=== PATIENT | female | born 1960 | race African-American/Black ===

== ENCOUNTER 2017-02-13 01:05 | Inpatient (IN) | payer MEDICARE, OTHER ==
[2017-02-13] VITALS (13 sets, daily range): BP systolic 126–177; BP diastolic 68–92; PULSE 59–79; RESP 16–18; TEMP 97.9–98.5; O2SAT 96–99
[~2017-02-13] VITALS: Ht 167.6 cm; Wt 100.0 kg
[2017-02-13] MEDS ORDERED: SODIUM CHLORIDE 0.9% FLUSH 5 ML FLUSH IV FLUSH PRN (01:15)
[2017-02-13 01:34] LABS: AUTOMATED NEUTROPHIL # 4.7 TH/MM3 (1.8-7.7); BASOPHIL % 0.5 % (0.0-2.0); EOSINOPHIL # 0.1 TH/MM3 (0-0.4); EOSINOPHIL % 1.5 % (0.0-4.0); HEMATOCRIT 32.4 % (35.0-46.0); HEMO FLAGS DIFF FINAL; LYMPHOCYTE # 1.7 TH/MM3 (1.0-4.8); MEAN CELL VOLUME 85.7 FL (80.0-100.0); MEAN CORPUSCULAR HEMOGLOBIN 29.2 PG (27.0-34.0); MONO % 6.6 % (0.0-8.0); NEUT % 67.4 % (16.0-70.0); PLATELET COUNT 194 TH/MM3 (150-450); RED BLOOD COUNT 3.79 MIL/MM3 (4.00-5.30); RED CELL DISTRIBUTION WIDTH 15.4 % (11.6-17.2)
[2017-02-13 01:35] LABS: BACTERIA, URINE OCC /hpf; BLOOD, URINE NEG (NEG); COMMENT (UR) CATH-CULTURE IND; CULTURE IF INDICATED CATH CULTURE IND; GLUCOSE,URINE NEG (NEG); KETONE, URINE TRACE mg/dL (NEG); NITRITE,URINE NEG (NEG); SQUAMOUS EPITHELIAL CELL URINE <1 /hpf (0-5); URINE COLOR YELLOW (YELLW/STRAW)
[2017-02-13] MEDS ORDERED: FERR325T8 PO (01:37)
[2017-02-13] MEDS ORDERED: FURO20TA PO (01:37)
[2017-02-13] MEDS ORDERED: HEMOCAP PO (01:37)
[2017-02-13] MEDS ORDERED: METF500T PO (01:37)
[2017-02-13] MEDS ORDERED: ATOR10TA15 PO (01:37)
[2017-02-13] MEDS ORDERED: NITR1SUB3 SL (01:37)
[2017-02-13] MEDS ORDERED: CAPT25TA2 PO (01:37)
[2017-02-13] MEDS ORDERED: CARV3.12 PO (01:37)
[2017-02-13] MEDS ORDERED: POTA-255 PO (01:37)
[2017-02-13] MEDS ORDERED: NEUR100C PO (01:37)
[2017-02-13] MEDS ORDERED: LEXA10TA PO (01:37)
[2017-02-13] MEDS ORDERED: ASPI81CH37 CHEW (01:37)
--- NOTE | 2017-02-13 01:45 | RADRPT ---
EXAM DATE/TIME: 02/13/2017 01:16 [facility] COMPARISON: No previous studies available for comparison. INDICATIONS : Syncopal episode. MEDICAL HISTORY : Stroke. SURGICAL HISTORY : None. ENCOUNTER: Initial ACUITY: 1 day PAIN SCORE: Non-responsive. LOCATION: Bilateral chest FINDINGS: Cardiomegaly. There is airspace disease and/or atelectasis suspected at the bases. Degenerative hernandez es of the spine. CONCLUSION: Basilar atelectasis versus airspace disease. Issa Richardson MD on February 13, 2017 at 1:43 Board Certified Radiologist. This report was verified electronically.
[2017-02-13 01:48] LABS: APTT (PATIENT) 26.1 SEC (24.3-30.1); PROTHROMBIN TIME - PATIENT 10.5 SEC (9.8-11.6)
[2017-02-13 01:58] LABS: ALT (GPT) 22 U/L (10-53); ANION GAP 7 MEQ/L (5-15); AST (GOT) 13 U/L (15-37); BICARBONATE 31.1 MEQ/L (21.0-32.0); BLOOD UREA NITROGEN 25 MG/DL (7-18); CHLORIDE 105 MEQ/L (98-107); GLOMERULAR FILTRATION RATE 41 ML/MIN (>89); POTASSIUM 4.3 MEQ/L (3.5-5.1); SODIUM (NA) 143 MEQ/L (136-145)
[2017-02-13 02:02] LABS: ALKALINE PHOSPHATASE 105 U/L (45-117); CREATINE KINASE 76 U/L (26-192); TOTAL BILIRUBIN ADULT 0.2 MG/DL (0.2-1.0)
--- NOTE | 2017-02-13 02:11 | RADRPT ---
EXAM DATE/TIME: 02/13/2017 01:51 [facility] COMPARISON: No previous studies available for comparison. INDICATIONS : Altered mental status. RADIATION DOSE: 31.99 CTDIvol (mGy) MEDICAL HISTORY : Cardiovascular disease. Hypertension. Cerebrovascular disease. SURGICAL HISTORY : None. ENCOUNTER: Initial ACUITY: 1 day PAIN SCALE: Non-responsive LOCATION: cranial TECHNIQUE: Multiple contiguous axial images were obtained of the head. Using automated exposure control and adj ustment of the mA and/or kV according to patient size, radiation dose was kept as low as reasonably a chievable to obtain optimal diagnostic quality images. DICOM format image data is available electro nically for review and comparison. FINDINGS: There is encephalomalacia of the left frontal parietal and temporal lobes from remote infarct. Ex vac uo dilatation of left lateral ventricle noted. There are no signs of acute infarct, intracranial hemo rrhage, or mass. Wallerian degeneration is noted with volume loss of the left cerebral peduncle. Ther e are no fractures. CONCLUSION: Remote left cerebral infarction as above. No acute findings. Issa Richardson MD on February 13, 2017 at 2:08 Board Certified Radiologist. This report was verified electronically.
[2017-02-13] MEDS ORDERED: SODIUM CHLORID 0.9% 500 ML INJ 500 ML IV ONE (02:15)
[2017-02-13] MEDS ORDERED: cefTRIAXone INJ 1,000 MG in SODIUM CHLORIDE 0.9% INJ 100 ML IV ONE (02:15)
--- NOTE | 2017-02-13 03:01 | PD ---
HPI Chief Complaint: Altered Mental Status Time Seen by Provider: 01:15 Travel History International Travel<30 days: No Contact w/Intl Traveler<30days: No Traveled to known affect area: No History of Present Illness HPI Patient is a 56 year old female, with history of stroke in the past, who comes in from [facility] from [facility]. Per EMS, [facility] staff said patient is usually more alert and communicative, though nonverbal. Patient is unable to provide any history. PFSH Past Medical History Anemia: Yes Arthritis: No Asthma: No Autoimmune Disease: No Blood Disorders: No Anxiety: No Depression: No Heart Rhythm Problems: No Cancer: No Cardiovascular Problems: No High Cholesterol: Yes Chemotherapy: No Chest Pain: No COPD: No Cerebrovascular Accident: No Diabetes: Yes (TYPE 2) Patient Takes Glucophage: Yes Diminished Hearing: No Endocrine: No GERD: No Glaucoma: No Genitourinary: No Headaches: No Hepatitis: No Hiatal Hernia: No Hypertension: Yes Immune Disorder: No Kidney Stones: No Musculoskeletal: No Neurologic: No Psychiatric: No Reproductive: No Respiratory: No Migraines: No Myocardial Infarction: No Radiation Therapy: No Renal Failure: No Seizures: No Sickle Cell Disease: No Sleep Apnea: No Ulcer: No Tetanus Vaccination: Unknown ?: Not Past Surgical History Abdominal Surgery: Yes (PEG TUBE INSERTION AND REMOVAL) AICD: No Appendectomy: No Arteriovenous Shunt: No Cardiac Surgery: No Cholecystectomy: No Ear Surgery: No Endocrine Surgery: No Eye Surgery: No Genitourinary Surgery: No Gynecologic Surgery: No Insulin Pump: No Joint Replacement: No Oral Surgery: No Thoracic Surgery: No Other Surgery: Yes (TRACH INSERTION AND REMOVAL) Social History Alcohol Use: No (one /day) Tobacco Use: No (2-3/day) Substance Use: No Allergies-Medications (Allergen,Severity, Reaction): Coded Allergies: No Known Allergies (Verified , 02/13/17) Reported Meds & Prescriptions Reported Meds & Active Scripts Active Reported Nitroglycerin SL (Nitroglycerin) 0.4 Mg Subl 0.4 Mg SL DIRECTED PRN ONE TABLET UNDER THE TONGUE NEEDED FOR CHEST PAIN, MAY REPEAT EVERY FIVE MINUTES FOR A TOTAL OF 3 DOSES OR CALL 911 IF NO RELIEF Furosemide 20 Mg Tab 20 Mg PO DAILY Potassium (Potassium Gluconate) 600 Mg Tablet 10 Meq PO DAILY Captopril 25 Mg Tab 25 Mg PO BIDAC Take 1 hr before meals. Atorvastatin (Atorvastatin Calcium) 10 Mg Tab 10 Mg PO HS Hemocyte Plus (Multi-Vit w/MC-Jvzv-Kxalrezk) 1 Cap Cap 1 Cap PO DAILY Ferrous Sulfate 325 Mg (65 Mg Iron) Tablet 325 Mg PO TIDPC Neurontin (Gabapentin) 100 Mg Cap 200 Mg PO TID Carvedilol 3.125 Mg Tab 3.125 Mg PO BID Metformin (Metformin HCl) 500 Mg Tab 500 Mg PO BIDPC With meals Lexapro (Escitalopram Oxalate) 10 Mg Tab 10 Mg PO DAILY Aspirin Low Dose (Aspirin) 81 Mg Chew 81 Mg CHEW DAILY Review of Systems ROS Limitations: Altered Mental Status Physical Exam Narrative GENERAL: Lethargic, but awakes to verbal stimuli. SKIN: Focused skin assessment warm/dry. HEAD: Atraumatic. Normocephalic. EYES: Pupils equal and round. No scleral icterus. EOMI ENT: Mucous membranes pink and moist. NECK: Trachea midline. No JVD. CARDIOVASCULAR: Regular rate and rhythm. No murmur appreciated. RESPIRATORY: No accessory muscle use. Clear to auscultation. Breath sounds equal bilaterally. GASTROINTESTINAL: Abdomen soft, non-tender, nondistended. MUSCULOSKELETAL: No obvious deformities. No clubbing. No cyanosis. No edema. NEUROLOGICAL: No obvious cranial nerve deficits. Right sided weakness (chronic) . Normal speech. PSYCHIATRIC: Appropriate mood and affect; insight and judgment normal. Data Data Last Documented VS Vital Signs Date Time Temp Pulse Resp B/P Pulse Ox O2 Delivery O2 Flow Rate FiO2 02/13/17 02:00 71 16 149/68 98 Room Air 02/13/17 01:11 98.2 Orders Electrocardiogram (02/13/17:15) Ammonia (02/13/17:15) Complete Blood Count With Diff (02/13/17:15) Comprehensive Metabolic Panel (02/13/17:15) Creatine Kinase (Cpk) (02/13/17:15) Prothrombin Time / Inr (Pt) (02/13/17:15) Act Partial Throm Time (Ptt) (02/13/17:15) Troponin I (02/13/17:15) Urinalysis - C+S If Indicated (02/13/17:15) Ua Includes Microscopic (02/13/17:15) Chest, Single Ap (02/13/17:15) Ct Brain W/O Iv Contrast(Rout) (02/13/17 01:15) Blood Glucose (02/13/17 01:15) Ecg Monitoring (02/13/17 01:15) Iv Access Insert/Monitor (02/13/17 01:15) Oximetry (02/13/17 01:15) Sodium Chloride 0.9% Flush (Ns Flush) (02/13/17 01:15) Urine Culture (02/13/17 01:25) Sodium Chlorid 0.9% 500 Ml Inj (Ns 500 M (02/13/17 02:15) Ceftriaxone Inj (Rocephin Inj) (02/13/17 02:15) Admit Order (Ed Use Only) (02/13/17 ) Place In Observation (02/13/17 ) Vital Signs (Adult) Q4H (02/13/17 03:01) Activity Oob With Assistance (02/13/17 03:01) Diet Npo (02/13/17 Breakfast) Sodium Chlor 0.9% 1000 Ml Inj (Ns 1000 M (02/13/17 03:01) Sodium Chloride 0.9% Flush (Ns Flush) (02/13/17 03:15) Sodium Chloride 0.9% Flush (Ns Flush) (02/13/17 09:00) Acetaminophen (Tylenol) (02/13/17 03:15) Ondansetron Inj (Zofran Inj) (02/13/17 03:15) Resp Oxygen Hany C Titrat 1-4 L (02/13/17 ) Heparin Inj (Heparin Inj) (02/13/17 04:00) Naloxone Inj (Narcan Inj) (02/13/17 03:15) Sennosides (Senokot) (02/13/17 03:15) Ceftriaxone Inj (Rocephin Inj) (02/14/17 02:00) Labs Laboratory Tests Test 02/13/17 02/13/17 01:20 01:25 White Blood Count 7.0 TH/MM3 Red Blood Count 3.79 MIL/MM3 Hemoglobin 11.0 GM/DL Hematocrit 32.4 % Mean Corpuscular Volume 85.7 FL Mean Corpuscular Hemoglobin 29.2 PG Mean Corpuscular Hemoglobin 34.0 % Concent Red Cell Distribution Width 15.4 % Platelet Count 194 TH/MM3 Mean Platelet Volume 8.0 FL Neutrophils (%) (Auto) 67.4 % Lymphocytes (%) (Auto) 24.0 % Monocytes (%) (Auto) 6.6 % Eosinophils (%) (Auto) 1.5 % Basophils (%) (Auto) 0.5 % Neutrophils # (Auto) 4.7 TH/MM3 Lymphocytes # (Auto) 1.7 TH/MM3 Monocytes # (Auto) 0.5 TH/MM3 Eosinophils # (Auto) 0.1 TH/MM3 Basophils # (Auto) 0.0 TH/MM3 CBC Comment DIFF FINAL Differential Comment Prothrombin Time 10.5 SEC Prothromb Time International 1.0 RATIO Ratio Activated Partial 26.1 SEC Thromboplast Time Sodium Level 143 MEQ/L Potassium Level 4.3 MEQ/L Chloride Level 105 MEQ/L Carbon Dioxide Level 31.1 MEQ/L Anion Gap 7 MEQ/L Blood Urea Nitrogen 25 MG/DL Creatinine 1.57 MG/DL Estimat Glomerular Filtration 41 ML/MIN Rate Random Glucose 115 MG/DL Calcium Level 8.9 MG/DL Total Bilirubin 0.2 MG/DL Aspartate Amino Transf 13 U/L (AST/SGOT) Alanine Aminotransferase 22 U/L (ALT/SGPT) Alkaline Phosphatase 105 U/L Ammonia 41 MCMOL/L Total Creatine Kinase 76 U/L Troponin I LESS THAN 0.02 NG/ML Total Protein 7.5 GM/DL Albumin 3.1 GM/DL Urine Color YELLOW Urine Turbidity CLEAR Urine pH 7.0 Urine Specific [place] 1.019 Urine Protein TRACE mg/dL Urine Glucose (UA) NEG mg/dL Urine Ketones TRACE mg/dL Urine Occult Blood NEG Urine Nitrite NEG Urine Bilirubin NEG Urine Urobilinogen LESS THAN 2.0 MG/DL Urine Leukocyte Esterase MOD Urine RBC LESS THAN 1 /hpf Urine WBC 9 /hpf Urine Squamous Epithelial <1 /hpf Cells Urine Bacteria OCC /hpf Microscopic Urinalysis Comment CATH-CULTURE IND MDM Medical Decision Making Medical Screen Exam Complete: Yes Emergency Medical Condition: Yes Medical Record Reviewed: Yes Differential Diagnosis Sepsis vs CVA vs UTI vs pneumonia vs electrolyte abnormalities vs ACS Narrative Course Patient is a 56 year old female who comes in from [place] due to AMS. Exam shows no acute abnormalities other than some lethargy. IV established, labs sent. Urinalysis is positive for UTI. Given IVF and Rocephin. CT head performed shows no new findings. Patient admitted for further management. Diagnosis Primary Impression: Altered mental status Qualified Code: R41.82 - Altered mental status, unspecified altered mental status type Additional Impression: UTI (urinary tract infection) Qualified Code: N30.00 - Acute cystitis without hematuria Admitting Information Admitting Physician Requests: Admit Condition: Stable Osiris Fontana MD Feb 13, 2017 03:01
[2017-02-13] MEDS ORDERED: ONDANSETRON HCL 4 MG/2 ML VIAL IVP PRN (03:15)
[2017-02-13] MEDS ORDERED: NALOXONE HCL 0.4 MG/ML AMP IV PRN (03:15)
[2017-02-13] MEDS ORDERED: ACETAMINOPHEN 325 MG TAB PO PRN (03:15)
[2017-02-13] MEDS ORDERED: SODIUM CHLORIDE 0.9% FLUSH 10 ML FLUSH IV FLUSH PRN (03:15)
[2017-02-13] MEDS ORDERED: SENNOSIDES 8.6 MG TAB PO PRN (03:15)
[2017-02-13] MEDS: HEPARIN SODIUM - SQ 10,000 UNITS/ML VIAL SQ SCH ×2 (04:29→18:24)
[2017-02-13] MEDS: SODIUM CHLOR 0.9% 1000 ML INJ 1,000 ML IV SCH ×3 (04:29→22:01)
[2017-02-13] MEDS: SODIUM CHLORIDE 0.9% FLUSH 10 ML FLUSH IV FLUSH SCH ×2 (09:00→21:59)
[2017-02-13] MEDS ORDERED: DEXTROSE 50% IN WATER 50 ML VIAL(D50) IV PRN ×2 (09:15→10:45)
[2017-02-13] MEDS ORDERED: GLUCAGON 1 MG/ML VIAL OTHER PRN ×2 (09:15→10:45)
--- NOTE | 2017-02-13 10:08 | MH ---
cc: EFRAIN SOLIS MD DATE OF ADMISSION 02/13/2017 DATE OF 1960 REASON FOR ADMISSION Altered mental status reported her caretakers. HISTORY OF PRESENT ILLNESS This is a 86-year-old black female who according to her caretakers had been in her usual state of health, had been alert and communicative, but had become nonverbal. On arrival to the emergency room, the patient was unable to provide much history. She has currently begun to wake up and whispers that she knows she is in the hospital, otherwise minimal to no conversation. Most of the information gathered for this H&P is going to be from the record. PAST MEDICAL HISTORY 1. Anemia 2. Hyperlipidemia 3. The patient takes Glucophage for diabetes type 2. 4. CVA 5. Hypertension 6. Possible psych history. 7. Chest pain unspecified PAST SURGICAL HISTORY 1. PEG tube insertion and removal 2. Trach insertion and removal. Unknown others. ALLERGIES No known. MEDICATIONS Reported: 1. Nitroglycerin 2. Lasix 3. Potassium 4. Captopril 5. Atorvastatin 6. Hemolite plus 7. Ferrous sulfate 8. Neurontin 9. Carvedilol 10. Metformin 11. Lexapro 12. Aspirin SOCIAL HISTORY Currently the patient lives in a [facility] setting. She does have a history of tobacco and alcohol usage, but none currently at this point. No illicit drugs noted. REVIEW OF SYSTEMS Unable to obtain due to the patient's generalized weakness and altered mental status. PHYSICAL EXAM VITAL SIGNS: Temperature is 98.2, pulse 59, has been as high as 71, respirations 18, blood pressure 175/85, on admission 149/68, O2 sat 97 currently on room air. SKIN: Arthur mucous membranes warm and dry. HEENT: Atraumatic, normocephalic. PERRL at 2. Mucous membranes were pink and moist. No scleral icterus. NECK: Supple. CARDIOVASCULAR: S1-S2. Rhythm is regular. Initial heart rate noted 59 and now greater than 60. RESPIRATORY: Air volumes are low, but no acute rhonchi or wheezing, essentially clear to auscultation. GI: Abdomen is soft and nontender. Old PEG tube site closed. No erythema or edema noted. MUSCULOSKELETAL: No obvious deformities, but she her right side is flaccid upper extremity and lower extremity. Not moving on command. She has no edema. NEUROLOGIC: She is very weak, opens her eyes to voice. Speech was a limited and minimal only a whisper, but did respond appropriately to a couple of simple questions. PSYCHIATRIC: Mood and affect are flat. DIAGNOSTIC DATA WBC count 7, RBC 3.79, hemoglobin 11, hematocrit 32.4. Diff is normal. PT/INR is 1. Chemistry sodium 143, potassium 4.3, chloride 105, carbon dioxide 31.1, BUN 25, creatinine 1.57, GFR 41, random glucose 115, AST 13, ammonia level 41, troponin less than 0.02, albumin 3.1. Urine is yellow clear, pH of 7, specific gravity 1.019, trace of protein, trace of ketones, moderate amount of leukocyte esterase. Culture is indicated and pending. IMAGING STUDIES Shows chest x-ray to be basilar atelectasis versus air space disease. Head CT remote left cerebral infarction and no other acute findings. On her pulmonary assessment, diminished breath sounds. ASSESSMENT/PLAN 1. Altered mental status 2. Acute kidney injury with dehydration. 3. Urinary tract infection probable. 4. A history of CVA. Our plan is to admit, ECG monitoring and vital signs q4 as warranted. We will recheck her labs in the morning. She had an elevated ammonia level and with her mental status, we will follow free any encephalopathy. DVT prophylaxis with heparin and bowel regimen. The patient received Rocephin in the emergency room and a normal saline bolus. Urine culture is pending. The patient is currently n.p.o. We will do a swallow study and have ST check. The patient did, in the past, have a PEG tube and due to her altered mental status, we need to make sure she is safe to eat. Out of bed only with assistance. The patient does take Glucophage so we will add Accu-Chek's a.c. and h.s. with sliding scale and we will continue to follow. Dictated by, DANNY Reynoso MD FRANCO Elena/VESTA /8:52 AM /9:40 AM seen, examined by myself, Dr Solis, today Discussed with patient History of stroke with right sided weakness Trouble with phonation Currently on pured diet Likely will need to have outpatient ENT evaluation with laryngoscopy Especially with the hoarseness and the fact that she smokes Plan otherwise as above Discussed with mid level provider The exam, history, and the medical decision-making described in the above note were completed with the assistance of the mid-level provider. I reviewed the findings presented. I attest that I had a [id number] encounter with the patient on the same day, and personally performed and documented my assessment and findings in the medical record. MTDD
[2017-02-13] MEDS ORDERED: NITROGLYCERIN 0.4 MG SL 25 TABS/BTL SL PRN (10:45)
[2017-02-13] MEDS: INSULIN ASPART SUPPLEMENTAL SCALE SQ SCH ×3 (11:00→21:00)
[2017-02-13] MEDS ORDERED: INSULIN ASPART SUPPLEMENTAL SCALE SQ SCH (11:00)
[2017-02-13] MEDS: FERROUS FUMARATE 325 MG TAB (106 MG ELEMENTAL IRON) PO SCH (11:34)
[2017-02-13] MEDS: POTASSIUM CHLORIDE 10 MEQ CONTROLLED RELEASE TAB PO SCH (11:34)
[2017-02-13] MEDS ORDERED: FERROUS SULFATE 325 MG (65 MG ELEMENTAL IRON) TAB PO SCH (13:30)
[2017-02-13] MEDS: GABAPENTIN 100 MG CAP PO SCH ×2 (13:49→18:23)
--- NOTE | 2017-02-13 15:11 | EKG ---
Date Performed: 02/13/2017 Time Performed: 02:01:35 PTAGE: 56 years EKG: Sinus rhythm PATTERN CONSISTENT WITH PULMONARY DISEASE INCOMPLETE RIGHT BUNDLE BRANCH BLOCK INFERIOR MYOCARDIAL I NFARCTION MODERATE T-WAVE ABNORMALITY, CONSIDER LATERAL ISCHEMIA Mild variation in T wave changes sin ce prior tracing. ABNORMAL ECG PREVIOUS TRACING : 11/27/2006 07.49 DOCTOR: Mark Cagle Interpretating Date/Time 02/13/2017 15:10:41
[2017-02-13] MEDS: CAPTOPRIL 25 MG TAB PO SCH (18:23)
[2017-02-13] MEDS: ATORVASTATIN 10 MG TAB PO SCH (21:58)
[2017-02-13] MEDS: CARVEDILOL 3.125 MG TAB PO SCH (21:58)
[2017-02-14] VITALS (7 sets, daily range): BP systolic 141–198; BP diastolic 75–94; PULSE 60–77; RESP 18–20; TEMP 97.8–98.9; O2SAT 97–100
[2017-02-14] MEDS: cefTRIAXone INJ 1,000 MG in SODIUM CHLORIDE 0.9% INJ 100 ML IV SCH (02:24)
[2017-02-14] MEDS: HEPARIN SODIUM - SQ 10,000 UNITS/ML VIAL SQ SCH ×2 (02:25→18:56)
[2017-02-14] MEDS: INSULIN ASPART SUPPLEMENTAL SCALE SQ SCH ×4 (05:51→20:36)
[2017-02-14] MEDS: CAPTOPRIL 25 MG TAB PO SCH ×2 (05:52→18:56)
[2017-02-14] MEDS: SODIUM CHLOR 0.9% 1000 ML INJ 1,000 ML IV SCH ×2 (09:01→20:30)
--- NOTE | 2017-02-14 09:16 | HHI.PR ---
Subjective Remarks Resting in bed Eyes open and attempting to answer simple questions Voice very soft Afebrile (Ingrid Vines) Objective Objective Results - Vital Signs Date Time Temp Pulse Resp B/P Pulse Ox O2 Delivery O2 Flow Rate FiO2 02/14/17 08:10 97.8 64 20 167/84 98 02/14/17 04:26 98.5 77 18 142/80 97 02/14/17 00:04 98.9 77 18 141/75 100 02/13/17 20:01 98.5 79 18 146/78 96 02/13/17 19:10 98 21 02/13/17 14:23 97.9 63 18 172/81 99 02/13/17 11:18 59 17 177/83 99 Room Air 02/13/17 11:18 59 17 99 Room Air (Ingrid Vines) Result Diagram: 02/13/17 0120 02/13/17 0120 ROS General: Fatigue, Weakness, Other (10 point ROS done positives noted) Pulmonary: Cough (occasional), SOB (low volumes) GI: BM (monitor regimen BM within the past couple of days she nods yes to) /PRODUCTION ADMINISTRATIVE ASSISTANT: Dysuria (UTI) Neuro/MS: Other (right-sided flaccid previous CVA) (Ingrid Vines) Physical Exam Physical Exam PHYSICAL EXAMINATION GENERAL: This is a unfortunate female who appears to be in no acute distress resting in the bed She is awake and responsive HEAD: Normocephalic OROPHARYNGEAL: Oropharynx clean without erythema NECK: Supple. Trachea midline without deviation. CARDIAC: Regular rhythm, regular rate, S1 and S2 are heard. LUNGS: Diminished at bases to auscultation bilaterally. With low volumes ABDOMEN: Soft, nontender Bowel sounds soft EXTREMITIES: No edema. Extremities warm NEUROLOGICAL: Patient mood and affect appropriate. Previous CVA with right- sided flaccid SKIN:Warm and moist (Ingrid Vines) A/P Assessment and Plan Vital signs reviewed normal trends for now Labs reviewed, anemia probably secondary to chronic disease hemoglobin 11. We' ll continue to monitor trends, urine culture is pending, acute kidney injury dehydration Will recheck labs in the morning Bowel regimen, shakes her head yes to BM, will monitor Physical therapy done angle out of bed to chair if possible 1. Altered mental status Appears to be more alert today, voice is still very soft, tongue pink and moist, no exudate noted 2. Acute kidney injury with dehydration. Continued with IV fluids and gentle hydration, encouraged by mouth fluids 3. Urinary tract infection probable. Urine culture is still pending, and continue to treat with antibiotics, monitor her symptoms 4. A history of CVA. Right-sided flaccid, moves left side with purpose, generalized weakness, speech therapy and eval swallow Recommends pured diet with thin liquids, Discussed with patient Discussed with nurse Discussed with Dr. May, seen on his behalf Discharge planning within the next day or 2 pending her UTI and labs. Physical therapy today to evaluate (Ingrid Vines) Assessment and Plan seen, examined by myself, Dr May, today Discussed with patient, it appears to me that mental status has dramatically improved Possible discharge to snf tomorrow if stable Discussed with mid level provider The exam, history, and the medical decision-making described in the above note were completed with the assistance of the mid-level provider. I reviewed the findings presented. I attest that I had a [id number] encounter with the patient on the same day, and personally performed and documented my assessment and findings in the medical record. (Naa May MD) Ingrid Vines Feb 14, 2017 09:16 Naa May MD Feb 14, 2017 19:14
[2017-02-14] MEDS: ASPIRIN 81 MG CHEW TAB CHEW SCH (10:47)
[2017-02-14] MEDS: GABAPENTIN 100 MG CAP PO SCH ×3 (10:47→18:56)
[2017-02-14] MEDS: POTASSIUM CHLORIDE 10 MEQ CONTROLLED RELEASE TAB PO SCH (10:47)
[2017-02-14] MEDS: FERROUS FUMARATE 325 MG TAB (106 MG ELEMENTAL IRON) PO SCH (10:48)
[2017-02-14] MEDS: CARVEDILOL 3.125 MG TAB PO SCH ×2 (10:48→20:32)
[2017-02-14] MEDS: SODIUM CHLORIDE 0.9% FLUSH 10 ML FLUSH IV FLUSH SCH ×2 (10:48→20:32)
[2017-02-14] MEDS: ESCITALOPRAM OXALATE 10 MG TAB PO SCH (10:48)
[2017-02-14] MEDS: FUROSEMIDE 20 MG TAB PO SCH (10:48)
[2017-02-14 12:40] LABS: BICARBONATE 23.6 MEQ/L (21.0-32.0); POTASSIUM 5.9 MEQ/L (3.5-5.1)
[2017-02-14] MEDS ORDERED: ENALAPRILAT 1.25 MG/ML VIAL IV PUSH PRN (13:30)
[2017-02-14] MEDS: ATORVASTATIN 10 MG TAB PO SCH (20:32)
[2017-02-15 00:10] VITALS: BP 177/81; PULSE 66; RESP 18; TEMP 98.5; O2SAT 98
[2017-02-15] MEDS: SODIUM CHLOR 0.9% 1000 ML INJ 1,000 ML IV SCH ×2 (02:53→15:01)
[2017-02-15] MEDS: HEPARIN SODIUM - SQ 10,000 UNITS/ML VIAL SQ SCH ×2 (02:53→15:17)
[2017-02-15] MEDS: cefTRIAXone INJ 1,000 MG in SODIUM CHLORIDE 0.9% INJ 100 ML IV SCH (02:53)
[2017-02-15 03:54] VITALS: BP 138/83; PULSE 67; RESP 18; TEMP 98; O2SAT 98
[2017-02-15] MEDS: CAPTOPRIL 25 MG TAB PO SCH ×2 (06:00→15:17)
[2017-02-15] MEDS: INSULIN ASPART SUPPLEMENTAL SCALE SQ SCH ×2 (06:00→12:30)
[2017-02-15 07:07] LABS: BICARBONATE 24.5 MEQ/L (21.0-32.0); POTASSIUM 4.3 MEQ/L (3.5-5.1)
[2017-02-15 07:30] VITALS: O2SAT 96
[2017-02-15 07:41] VITALS: BP 156/82; PULSE 63; RESP 18; TEMP 97.9; O2SAT 98
--- NOTE | 2017-02-15 08:46 | HHI.PR ---
Subjective Remarks Resting in bed Eyes open and attempting to answer simple questions Check for BM Afebrile (Ingrid Vines) Objective Objective Results - Vital Signs Date Time Temp Pulse Resp B/P Pulse Ox O2 Delivery O2 Flow Rate FiO2 02/15/17 07:41 97.9 63 18 156/82 98 02/15/17 03:54 98.0 67 18 138/83 98 02/15/17 00:10 98.5 66 18 177/81 98 02/14/17 21:05 99 02/14/17 20:46 98.8 66 18 176/90 98 02/14/17 18:02 98.6 60 20 156/75 97 02/14/17 12:13 97.9 67 18 198/94 100 160/82 (Ingrid Vines) Result Diagram: 02/13/17 0120 02/15/17 0520 ROS General: Weakness (old CVA), Other (10 point ROS done) GI: BM (None since adm??) (Ingrid Vines) Physical Exam Physical Exam PHYSICAL EXAMINATION GENERAL: This is a well-developed, female who appears to be in no acute distress. She is alert and awake, HEAD: Normocephalic without any lesion or mass noted. Facial features appear symmetric. OROPHARYNGEAL: Oropharynx without erythema or edema. NECK: Supple. No nuchal rigidity or lymphadenopathy. Trachea midline without deviation. CARDIAC: Regular rhythm, regular rate, S1 and S2 are heard. LUNGS: Clear to auscultation bilaterally. No use of accessory muscles on inspiration or expiration. ABDOMEN: Soft, nontender, no organomegaly or masses. Bowel sounds are heard in all four quadrants. No rebound. No guarding. EXTREMITIES: no edema. Pulses equal bilateral. NEUROLOGICAL: Patient mood and affect appropriate. Rt. sided paralysis SKIN:Warm and moist (Ingrid Vines) A/P Assessment and Plan Vital signs reviewed normal trends Labs reviewed, anemia, gm negative lalita UA Bowel regimen, shakes her head yes to BM, will monitor Physical therapy done angle out of bed to chair if possible 1. Altered mental status Appears to be more alert today, 2. Acute kidney injury with dehydration. Continued with IV fluids and gentle hydration, encouraged by mouth fluids, improving 3. Urinary tract infection probable. IV Rocephin, gm negative lalita 4. A history of CVA. Right-sided flaccid, moves left side with purpose, generalized weakness, speech therapy and eval swallow Recommends pured diet with thin liquids, tolerating well PT Possible mild constipation, lax today Discussed with patient Discussed with nurse Discussed with Dr. May, seen on his behalf Discharge planning probable today, CM consult (Ingrid Vines) Assessment and Plan seen, examined by myself, Dr May, today Discussed with patient Discussed with mid level provider The exam, history, and the medical decision-making described in the above note were completed with the assistance of the mid-level provider. I reviewed the findings presented. I attest that I had a [id number] encounter with the patient on the same day, and personally performed and documented my assessment and findings in the medical record. Discharge on oral antibiotics (Naa May MD) Ingrid Vines Feb 15, 2017 08:46 Naa May MD Feb 15, 2017 11:17
[2017-02-15] MEDS: ESCITALOPRAM OXALATE 10 MG TAB PO SCH (09:39)
[2017-02-15] MEDS: ASPIRIN 81 MG CHEW TAB CHEW SCH (09:39)
[2017-02-15] MEDS: CARVEDILOL 3.125 MG TAB PO SCH (09:39)
[2017-02-15] MEDS: GABAPENTIN 100 MG CAP PO SCH ×2 (09:39→13:46)
[2017-02-15] MEDS: FUROSEMIDE 20 MG TAB PO SCH (09:39)
[2017-02-15] MEDS: FERROUS FUMARATE 325 MG TAB (106 MG ELEMENTAL IRON) PO SCH (09:39)
[2017-02-15] MEDS: SODIUM CHLORIDE 0.9% FLUSH 10 ML FLUSH IV FLUSH SCH (09:40)
[2017-02-15] MEDS ORDERED: BISACODYL 10 MG SUPP RECTAL ONE (10:00)
[2017-02-15] MEDS ORDERED: BACT800T5 PO (10:14)
[2017-02-15 11:52] VITALS: BP 163/83; PULSE 64; RESP 18; TEMP 97.6; O2SAT 98
--- NOTE | 2017-02-15 18:37 | HHI.DS ---
Discharge Summary Admission Date Feb 13, 2017 at 03:04 Discharge Date: Feb 15, 2017 Admitting Diagnosis UTI, AMS Brief History This was a 86-year-old black female who according to her caretakers had been in her usual state of health, had been alert and communicative, but had become nonverbal. On arrival to the emergency room, the patient was unable to provide much history. She had currently begun to wake up and whispers that she knew she was in the hospital, otherwise minimal to no conversation. CBC/BMP: 02/13/17 0120 02/15/17 0520 Significant Findings Laboratory Tests Test 02/13/17 02/13/17 02/14/17 02/15/17 01:20 01:25 11:49 05:20 Blood Urea Nitrogen 25 MG/DL (7-18) 21 MG/DL (7-18) 20 MG/DL (7-18) Creatinine 1.57 MG/DL 1.50 MG/DL 1.37 MG/DL (0.50-1.00) (0.50-1.00) (0.50-1.00) Estimat Glomerular Filtration 41 ML/MIN (>89) 44 ML/MIN (>89) 48 ML/MIN (>89) Rate Random Glucose 115 MG/DL (74-106) Aspartate Amino Transf 13 U/L (15-37) (AST/SGOT) Ammonia 41 MCMOL/L 83 MCMOL/L (11-32) (11-32) Troponin I LESS THAN 0.02 NG/ML (0.02-0.05) Albumin 3.1 GM/DL (3.4-5.0) Red Blood Count 3.79 MIL/MM3 (4.00-5.30) Hemoglobin 11.0 GM/DL (11.6-15.3) Hematocrit 32.4 % (35.0-46.0) Urine Ketones TRACE mg/dL (NEG) Urine Leukocyte Esterase MOD (NEG) Urine WBC 9 /hpf (0-5) Urine Bacteria OCC /hpf (NONE) Potassium Level 5.9 MEQ/L (3.5-5.1) Chloride Level 110 MEQ/L 110 MEQ/L (98-107) (98-107) Imaging Last Impressions Head CT 02/13/17 0115 Signed Impressions: Service Date/Time: February 01:51 - CONCLUSION: Remote left cerebral infarction as above. No acute findings. Issa Richardson MD Chest X-Ray 02/13/17 0115 Signed Impressions: Service Date/Time: February 01:16 - CONCLUSION: Basilar atelectasis versus airspace disease. Issa Richardson MD PE at Discharge Physical Exam PHYSICAL EXAMINATION GENERAL: well-developed, female who appeared to be in no acute distress. alert and awake, HEAD: Normocephalic without any lesion or mass noted. Facial features appear symmetric. OROPHARYNGEAL: Oropharynx without erythema or edema. NECK: Supple. No nuchal rigidity or lymphadenopathy. Trachea midline without deviation. CARDIAC: Regular rhythm, regular rate, S1 and S2 are heard. LUNGS: Clear to auscultation bilaterally. No use of accessory muscles on inspiration or expiration. ABDOMEN: Soft, nontender, no organomegaly or masses. Bowel sounds heard in all four quadrants. No rebound. No guarding. EXTREMITIES: no edema. Pulses equal bilateral. NEUROLOGICAL: Patient mood and affect appropriate. Rt. sided paralysis SKIN:Warm and moist Hospital Course These diagnoses were used to treat this patient during this brief hospital stay Vital signs reviewed normal trends throughout hospital stay Labs reviewed, anemia, gm negative lalita UA, treatment regimen with IV Rocephin to cover gram-negative lalita Bowel regimen, shakes her head yes to BM, will monitor Physical therapy done angle out of bed to chair if possible 1. Altered mental status Appears to be more alert today, initially patient was drowsy and lethargic when she came in but responded well to IV fluids and antibiotics 2. Acute kidney injury with dehydration. Continued with IV fluids and gentle hydration, encouraged by mouth fluids, improving 3. Urinary tract infection probable. IV Rocephin, gm negative lalita 4. A history of CVA. Right-sided flaccid, moves left side with purpose, generalized weakness, speech therapy and eval swallow Recommends pured diet with thin liquids, tolerating well PT if needed for her strengthening Possible mild constipation, lax ordered as needed Patient was back to her baseline with her mental status, was discharged back to her previous snf Pt Condition on Discharge: Fair Discharge Disposition: Discharge to SNF Discharge Instructions DIET: Follow Instructions for: Heart Healthy Diet, Diabetic Diet Activities you can perform: Continue Bedrest Follow up Referrals: Ear Nose Throat - 2 Weeks New Medications: Sulfamethoxazole-Trimethoprim (Bactrim DS) 800-160 Mg Tab 1 TAB PO BID Infection #10 Ref 0 TAB Continued Medications: Aspirin (Aspirin Low Dose) 81 Mg Chew 81 MG CHEW DAILY Ref 0 TAB Atorvastatin (Atorvastatin) 10 Mg Tab 10 MG PO HS Cholesterol Management #30 Ref 0 TAB Captopril (Captopril) 25 Mg Tab 25 MG PO BIDAC Take 1 hr before meals. #60 Ref 0 TAB Carvedilol (Carvedilol) 3.125 Mg Tab 3.125 MG PO BID HYPERTENSION #60 Ref 0 TAB Escitalopram (Lexapro) 10 Mg Tab 10 MG PO DAILY #30 Ref 0 TAB Ferrous Sulfate (Ferrous Sulfate) 325 Mg (65 Mg Iron) Tablet 325 MG PO TIDPC ANEMIA #90 Ref 0 TAB Furosemide (Furosemide) 20 Mg Tab 20 MG PO DAILY #30 Ref 0 TAB Gabapentin (Neurontin) 100 Mg Cap 200 MG PO TID #90 Ref 0 CAP Metformin (Metformin) 500 Mg Tab 500 MG PO BIDPC With meals Blood Sugar Management #60 Ref 0 TAB Multi-Vit [id number] (Hemocyte Plus) 1 Cap Cap 1 CAP PO DAILY Nutritional Supplement #30 Ref 0 CAP Nitroglycerin SL (Nitroglycerin SL) 0.4 Mg Subl 0.4 MG SL DIRECTED ONE TABLET UNDER THE TONGUE NEEDED FOR CHEST PAIN, MAY REPEAT EVERY FIVE MINUTES FOR A TOTAL OF 3 DOSES OR CALL 911 IF NO RELIEF PRN CHEST PAIN #100 Ref 0 TAB.SL Discontinued Medications: Potassium Gluconate (Potassium) 600 Mg Tablet 10 MEQ PO DAILY Ingrid Vines Feb 15, 2017 18:37
== END 2017-02-15 17:02 | disposition short-term general hospital (02) | DRG 683 ==
LOC: NEPC 01:05 → NEDA 03:04 → NEPFCDU 14:05
PROVIDERS: ADMIT Specialist; ATTEND Specialist
DX: N17.9 Acute kidney failure, unspecified (principal); N39.0 Urinary tract infection, site not specified; I10 Essential (primary) hypertension; E78.5 Hyperlipidemia, unspecified; E11.9 Type 2 diabetes mellitus without complications; Z79.84 Long term (current) use of oral hypoglycemic drugs; E86.0 Dehydration; K59.00 Constipation, unspecified
CPT/HCPCS: 70450; 71010; 76937; 80048; 80053; 81001; 82140; 82550; 82948; 84132; 84484; 85025; 85610; 85730; 87077; 87086; 87186; 93005; J0696; J1644; J7030; J7040